=== PATIENT | male | born 1955 | race Caucasian/White ===

== ENCOUNTER 2025-07-09 14:45 | Emergency (ER) | payer MEDICARE, MEDICAID ==
[~2025-07-09] VITALS: Ht 177.8 cm; Wt 103.0 kg
[2025-07-09 15:01] VITALS: O2SAT 96
[2025-07-09] MEDS: SODIUM CHLORIDE 0.9% 1,000 ML IV ONE (15:16)
[2025-07-09 16:03] LABS: BASOPHILS % 0.3 % (0.0-2.0); EOSINOPHILS % 0.9 % (0.0-5.0); HEMATOCRIT. 38.9 % (42.0-52.0); HEMOGLOBIN. 13.2 g/dL (14.0-18.0); LYMPHOCYTES % 13.5 % (20.0-50.0); MEAN PLATELET VOLUME 8.5 fl (7.4-10.4); MONOCYTES % 6.2 % (2.0-8.0); NEUTROPHILS % 79.1 % (40.0-76.0); PLATELET 197 x1000/uL (130-400); RED BLOOD CELL COUNT 4.17 mill/uL (4.7-6.1); RED CELL DISTRIBUTION WIDTH 13.2 % (11.6-14.6)
[2025-07-09 16:12] LABS: INR 1.0
[2025-07-09 16:17] LABS: CREATININE 1.3 mg/dL (0.6-1.3); TROPONIN I HIGH SENSITIVITY 6 ng/L (3.0-53); UREA NITROGEN BLOOD 15 mg/dL (9-23)
[2025-07-09 16:18] LABS: ETHANOL BLOOD 109 mg/dL (<10)
[2025-07-09 16:19] LABS: ASPARTATE AMINOTRANSFERASE 48 IU/L (<34); BILIRUBIN DIRECT 0.1 mg/dL (<=3.0)
[2025-07-09 16:20] LABS: BILIRUBIN TOTAL 0.5 mg/dL (0.1-1.0); PROTEIN TOTAL 6.4 g/dL (6.0-8.3)
[2025-07-09 16:50] VITALS: TEMP 36.4; O2SAT 96
[2025-07-09 16:55] VITALS: BP 129/59; PULSE 79; RESP 18; TEMP 97.52
== END 2025-07-09 15:59 | disposition left against medical advice (07) ==
LOC: ER 15:04 → EDBEDREQ 15:10 → ER 15:59 → EDBEDREQ 17:55 → ENRESERV 17:58 → CANBEDREQ 18:05
DX: R41.82 Altered mental status, unspecified (principal); E11.9 Type 2 diabetes mellitus without complications; F10.90 Alcohol use, unspecified, uncomplicated; I49.3 Ventricular premature depolarization; I50.9 Heart failure, unspecified; I67.82 Cerebral ischemia; Z79.899 Other long term (current) drug therapy; Z98.2 Presence of cerebrospinal fluid drainage device; Y90.5 Blood alcohol level of 100-119 mg/100 ml
CPT/HCPCS: 80076; 80048; 80307; 80329; 80320; 82140; 82550; 83880; 83690; 83735; 85025; 85379; 85610; 85730; 86850; 86900; 86901; 84484; 36415; 70360; 71045; 74018; 70450; 93005; 99291; J7030; G0480